=== PATIENT | male | born 1985 | race Caucasian/White ===

== ENCOUNTER 2022-05-21 08:47 | Emergency (ER) | payer MEDICAID ==
[~2022-05-21] VITALS: Ht 162.6 cm; Wt 73.0 kg
[2022-05-21] MEDS ORDERED: ACETAMINOPHEN 325MG TABLET PO STA (09:12)
[2022-05-21] MEDS ORDERED: ASPIRIN 81MG TABLET PO ONE (09:15)
[2022-05-21] MEDS ORDERED: SODIUM CHLORIDE 0.9% 1,000 ML IV ONE (09:15)
[2022-05-21 09:20] LABS: EOSINOPHILS % 4.9 % (0.0-5.0); HEMATOCRIT. 46.4 % (42.0-52.0); HEMOGLOBIN. 15.7 g/dL (14.0-18.0); LYMPHOCYTES % 61.1 % (20.0-50.0); MEAN CORPUSCULAR HEMOGLOBIN 30.1 pg (28.0-32.0); MEAN CORPUSCULAR VOLUME 89.3 fL (80.0-94.0); MEAN PLATELET VOLUME 7.2 fl (7.4-10.4); MONOCYTES % 5.5 % (2.0-8.0); NEUTROPHILS % 27.5 % (40.0-76.0); PLATELET 261 x1000/uL (130-400); RED BLOOD CELL COUNT 5.19 mill/uL (4.7-6.1)
[2022-05-21 09:34] LABS: CHLORIDE 104 mEq/L (98-107)
[2022-05-21 09:45] LABS: ETHANOL BLOOD 30 mg/dL
[2022-05-21 09:49] VITALS: BP 123/81
[2022-05-21] MEDS ORDERED: POTASSIUM CHLORIDE 20MEQ TABLET SR PO ONE (10:00)
[2022-05-21 10:16] LABS: *AMPHETAMINES SCREEN URINE PRESUMTIVE POSITIVE (NEGATIVE); *BARBITURATES SCREEN URINE NEGATIVE (NEGATIVE); *BENZODIAZEPINES SCREEN URINE NEGATIVE (NEGATIVE); *COCAINE SCREEN URINE NEGATIVE (NEGATIVE); CANNABINOID URINE SCREEN NEGATIVE (NEGATIVE); METHADONE URINE SCREEN NEGATIVE (NEGATIVE); OPIATES URINE SCREEN NEGATIVE (NEGATIVE); PHENCYCLIDINE URINE SCREEN NEGATIVE (NEGATIVE)
== END 2022-05-21 12:50 | disposition home or self-care (01) ==
LOC: ER 09:07
DX: R07.89 Other chest pain (principal); F10.229 Alcohol dependence with intoxication, unspecified; Y90.1 Blood alcohol level of 20-39 mg/100 ml; F15.10 Other stimulant abuse, uncomplicated; E87.6 Hypokalemia; R74.01 Elevation of levels of liver transaminase levels; F17.290 Nicotine dependence, other tobacco product, uncomplicated
CPT/HCPCS: 36415; 71045; 80053; 80305; 80320; 83690; 84484; 85025; 93005; 96360; 99285; J7030; Z7610; G0480